=== PATIENT | female | born 1945 | race Caucasian/White ===

== ENCOUNTER 2018-07-07 08:13 | Inpatient (IN) | payer MEDICARE ==
[~2018-07-07] VITALS: Ht 175.3 cm; Wt 71.9 kg
[2018-07-07] VITALS (664 sets, daily range): BP systolic 107–141; BP diastolic 45–73; PULSE 85–106; TEMP 98.7–99.4; O2SAT 83–100
[2018-07-07] MEDS ORDERED: NEXIUM 20MG20 MG PO (08:22)
[2018-07-07 09:00] LABS: BASO # 0.1 (0.0-0.2); BASO % 0.4 % (0.0-2.0); EOS # 0.1 (0.0-0.7); EOS % 0.6 % (0-4.0); GRAN # 11.7 (1.4-6.5); GRAN % 80.2 % (42.2-75.2); LYMPH # 1.8 (1.2-3.4); LYMPH % 12.1 % (20.0-51.0); MEAN CELL VOLUME 94 fl (80.0-100.0); MEAN CORPUSCULAR HGB CONC 35 g/dl (33.0-37.0); MEAN PLATELET VOLUME 10.1 fl (7.4-10.4); MONO # 0.9 (0.1-0.6); MONO % 6.2 % (1.7-9.3); PLATELET COUNT 240 K/mm3 (130-400); RED BLOOD COUNT 2.23 M/mm3 (4.10-5.30); REDCELL DISTRIBUTION WIDTH-CV 13.1 % (11.5-14.5)
[2018-07-07 09:01] LABS: HEMOGLOBIN 7.3 g/dl (12.5-16.0); MEAN CORPUSCULAR HEMOGLOBIN 33 pg (27.0-31.0)
[2018-07-07 09:06] LABS: INR 1.2 (0.8-3.0); PROTHROMBIN TIME 13.6 SECONDS (9.7-12.8)
[2018-07-07] MEDS ORDERED: MERIBIN5 MG PO (09:08)
[2018-07-07 09:09] LABS: PARTIAL THROMBOPLASTIN TIME 28.5 SECONDS (26.0-37.0)
[2018-07-07] MEDS ORDERED: CALCIUM CARB W/1 TA1 PO (09:09)
[2018-07-07] MEDS ORDERED: NORCO 325 MG-7.1 TAB PO (09:10)
[2018-07-07] MEDS ORDERED: ZYRTEC 10MG10 MG PO (09:10)
[2018-07-07] MEDS ORDERED: CENTRUM1 TA1 PO (09:11)
[2018-07-07] MEDS ORDERED: METAMUCIL MUL0.52 GM PO (09:11)
[2018-07-07] MEDS ORDERED: TYLENOL 325MG325 MG PO (09:12)
[2018-07-07 09:20] LABS: ALANINE AMINOTRANSFERASE 40 U/L (9-52); ALBUMIN 3.1 gm/dL (3.5-5.0); ALKALINE PHOSPHATASE 77 U/L (50-136); ANION GAP 8 mmol/L (7-16); AST,SGOT 20 U/L (15-37); BILIRUBIN,TOTAL 0.2 mg/dL (0.0-1.0); BLOOD UREA NITROGEN 32 mg/dL (7-17); CALCIUM 8.3 mg/dL (8.4-10.2); CARBON DIOXIDE 25 mmol/L (22-30); CHLORIDE 99 mmol/L (98-107); CREATININE, serum 0.74 mg/dL (0.52-1.25); GLUCOSE 138 mg/dL (74-106); LIPASE 81 U/L (23-300); MAGNESIUM 1.7 mg/dL (1.6-2.3); POTASSIUM 3.9 mmol/L (3.4-5.0); SODIUM 132 mmol/L (137-145); TOTAL PROTEIN 5.6 gm/dL (6.4-8.2)
[2018-07-07 09:48] LABS: TROPONIN-I < 0.012 ng/mL (0.000-0.035)
[2018-07-07 09:48] LABS: COLLECTION METHOD CLEAN CATCH
[2018-07-07 09:54] LABS: MUCOUS Present /lpf; PH 5 (5-8); SQUAMOUS EPITHELIAL 0-2 /hpf; URINE APPEARANCE Clear; URINE BACTERIA None Seen /hpf; URINE BILIRUBIN Negative (NEGATIVE); URINE BLOOD Negative (NEGATIVE); URINE COLOR Yellow; URINE GLUCOSE Negative (NEGATIVE); URINE KETONE Negative (NEGATIVE); URINE LEUKOCYTE ESTERASE 1+ (NEGATIVE); URINE NITRATE Negative (NEGATIVE); URINE PROTEIN(semi-quant) Negative (NEGATIVE); URINE RBC 0-2 /hpf; URINE UROBILINOGEN Negative (NEGATIVE)
--- NOTE | 2018-07-07 10:45 | NUR ---
Patient arrives to ICU from emergency department. Patient is accompanied by CELSO Rubio, who called report to this nurse before arrival. Patient denies any chest pain or shortness of breath at this time. Able to scoot onto bed from stretcher. Patient is pale and appearance and her extremeties are a bit cool to the touch. Will monitor closely.
--- NOTE | 2018-07-07 12:00 | NUR ---
Contacted by primary care nurse for peripheral IV start. Nurse reports patient has a history of left breast removal and lymph nodes removal on left arm. Patient has now been admitted to the intensive care unit with an upper GI bleed. Patient reports history of recent right shoulder surgery including bicep repair. Right arm is in a sling. After discussion with the patient, we decided to start the IV in the left arm. 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 Reports understanding of increased chance of lymphedema. Previous IV was placed in left arm and removed without difficulty. Patient reported pain at site. Blood pressure cuff to left leg. RN informed of IV start.
--- NOTE | 2018-07-07 12:30 | NUR ---
Patient resting in bed at this time. Dr. Heard at bedside, discusses EGD for this afternoon.
[2018-07-07] MEDS ORDERED: MUCINEX 60600 MG/TA1 PO (15:13)
[2018-07-07] MEDS ORDERED: FLONASEALLERGY NS (15:14)
--- NOTE | 2018-07-07 15:57 | NUR ---
Patient leaves for EGD with transportation personnel.
--- NOTE | 2018-07-07 16:51 | NUR ---
Patient returns from EGD with nurse Dale. Patient states she is having some right shoulder pain at this time and feels a bit "pukey." Patient vitals stable at this time.
[2018-07-07 17:21] LABS: HEMATOCRIT 21.2 % (37.0-47.0); HEMOGLOBIN 7.2 g/dl (12.5-16.0)
--- NOTE | 2018-07-07 19:07 | NUR ---
Beside report given to CELSO Palencia.
--- NOTE | 2018-07-07 19:08 | NUR ---
RECEIVED REPORT FROM CELSO VIVAS AT BEDSIDE.
[2018-07-08] VITALS (816 sets, daily range): BP systolic 101–154; BP diastolic 40–66; PULSE 72–87; TEMP 98.2–98.7; O2SAT 90–100
--- NOTE | 2018-07-08 00:40 | NUR ---
[facility] HG 0F 6.7 CALLED BY LAB. THIS RN THEN NOTIFIED HOSPITALIST ISAIAH SANON. ORDERS RECEIVED TO DECREASE NS AT 100 ML/HR AND TRANSFUSE 1 PRBC. BLOOD BANK NOTIFIED AND WILL TYPE AND CROSS MATCH BLOOD. CONSENT SIGNED AND IN CHART.
[2018-07-08 00:41] LABS: HEMATOCRIT 19.8 % (37.0-47.0); HEMOGLOBIN 6.7 g/dl (12.5-16.0)
[2018-07-08 06:00] LABS: BASO # 0.1 (0.0-0.2); BASO % 0.7 % (0.0-2.0); EOS # 0.3 (0.0-0.7); EOS % 4.4 % (0-4.0); GRAN # 4.3 (1.4-6.5); GRAN % 60.9 % (42.2-75.2); LYMPH # 1.8 (1.2-3.4); LYMPH % 25.1 % (20.0-51.0); MEAN CELL VOLUME 94 fl (80.0-100.0); MEAN CORPUSCULAR HGB CONC 34 g/dl (33.0-37.0); MONO # 0.6 (0.1-0.6); MONO % 8.3 % (1.7-9.3); PLATELET COUNT 171 K/mm3 (130-400); RED BLOOD COUNT 2.52 M/mm3 (4.10-5.30); REDCELL DISTRIBUTION WIDTH-CV 15.2 % (11.5-14.5)
[2018-07-08 06:01] LABS: HEMATOCRIT 23.6 % (37.0-47.0); HEMOGLOBIN 8.1 g/dl (12.5-16.0); MEAN CORPUSCULAR HEMOGLOBIN 32 pg (27.0-31.0)
[2018-07-08 06:10] LABS: CALCIUM 7.9 mg/dL (8.4-10.2); CREATININE, serum 0.71 mg/dL (0.52-1.25); POTASSIUM 3.6 mmol/L (3.4-5.0)
--- NOTE | 2018-07-08 07:04 | NUR ---
Report received from CELSO Palencia.
--- NOTE | 2018-07-08 07:20 | NUR ---
report given to CELSO Bustillos.
--- NOTE | 2018-07-08 07:45 | NUR ---
Assessment complete, patient assisted to bathroom, AM care complete, patient reports "pulsating pain to back of neck, has been there since last Wednesday." Tylenol given per request. Assisted back to bed, call light within reach.
--- NOTE | 2018-07-08 10:28 | NUR ---
SW met with patient after clinical rounds. Patient lives independently at home in [place] and is still employed. Patient is staying with her brother here in [place] while she recovers from her surgery and this hospital stay. Patient reports her PCP is Dr Yoni Vaca in [place] and she obtain prescriptions from [facility]. Patient does not use any home health services or DME. Patient reports her brother will be visiting today and will bring a copy of her DPOA forms. reports patient should be able to discharge tomorrow. CINDI does not anticipate any needs upon discharge.
--- NOTE | 2018-07-08 13:07 | NUR ---
Report called to CELSO Mederos.
--- NOTE | 2018-07-08 14:50 | NUR ---
Patient transferred to [facility] via wheelchair, brother at bedside,all belongings with patient. CELSO Mederos met us in room.
--- NOTE | 2018-07-08 14:55 | NUR ---
Patient arrived to the floor at this time from ICU via wheelchair, she is alert/oriented, vital signs stable, denies pain at this time, just feeling "wore out", denies any more dark/ bloody stools, I have helped her to the bathroom and back to bed, will recheck her H&H at 1500 as ordered, has a visitor in the room, denies needs at this time
--- NOTE | 2018-07-08 14:57 | NUR ---
placed in contact P/C for MRSA + in nares, educated the patient on this
[2018-07-08 15:41] LABS: HEMATOCRIT 25.5 % (37.0-47.0); HEMOGLOBIN 8.5 g/dl (12.5-16.0)
--- NOTE | 2018-07-08 20:00 | NUR ---
Patient resting in bed watching television at this time. Patient is alert and oriented, answers questions appropriately. Sling in place to right arm, patient has recently had rotator cuff surgery. Patient currently denies pain, but state that she has an "odd" sensation in her neck/base of her skull and she is able to hear/feel her pulse constantly. Patient states she has reported it to several providers and no one has been able to determine the cause. Patient tried a flexeril earlier with no relief, currently has an ice pack and denies relief with that as well. Patient states this makes it difficult for her to sleep. Denies further needs at this time, call light within reach.
--- NOTE | 2018-07-08 23:26 | NUR ---
PER PROTOCOL PT 02 CHECK WAS COMPLETED OUT.
[2018-07-09] VITALS (7 sets, daily range): BP systolic 91–113; BP diastolic 37–50; PULSE 76–787; TEMP 97.9–98.1
--- NOTE | 2018-07-09 01:00 | NUR ---
BR[employer] SALES CONSULTANT reported that patient's pulse was high. Upon investigation, patient was tachycardic, rate fluctuating from 130's to 110's. Upon auscultation, apical was fast and irregular. Called hospitalist to report findings, initiated telemetry, EKG, and lab work per orders.
[2018-07-09 01:20] LABS: BASO # 0.1 (0.0-0.2); BASO % 0.8 % (0.0-2.0); EOS # 0.4 (0.0-0.7); EOS % 5.3 % (0-4.0); GRAN # 4.7 (1.4-6.5); GRAN % 60.6 % (42.2-75.2); LYMPH # 1.9 (1.2-3.4); LYMPH % 24.2 % (20.0-51.0); MEAN CELL VOLUME 95 fl (80.0-100.0); MEAN CORPUSCULAR HGB CONC 34 g/dl (33.0-37.0); MEAN PLATELET VOLUME 9.6 fl (7.4-10.4); MONO # 0.7 (0.1-0.6); MONO % 8.6 % (1.7-9.3); PLATELET COUNT 199 K/mm3 (130-400); RED BLOOD COUNT 2.82 M/mm3 (4.10-5.30); REDCELL DISTRIBUTION WIDTH-CV 16.3 % (11.5-14.5)
[2018-07-09 01:23] LABS: HEMATOCRIT 26.8 % (37.0-47.0); MEAN CORPUSCULAR HEMOGLOBIN 32 pg (27.0-31.0)
[2018-07-09 01:41] LABS: CALCIUM 8.3 mg/dL (8.4-10.2); CREATININE, serum 0.66 mg/dL (0.52-1.25); MAGNESIUM 1.9 mg/dL (1.6-2.3); POTASSIUM 3.4 mmol/L (3.4-5.0)
[2018-07-09 02:17] LABS: TSH w REFLEX 1.86 uIU/mL (0.465-4.680)
[2018-07-09] MEDS ORDERED: PROTONIX 40MG T40 MG PO (10:44)
[2018-07-09] MEDS ORDERED: FERRO-TIME325 MG PO (10:44)
--- NOTE | 2018-07-09 15:02 | NUR ---
Patient consult dc-plan due to feeling weak. Patient indicated that she wanted information on SNF or other Rehabs. Reviewed PT/OT notes, recommendation for outpatient rehab PT in [facility]. Provide patient with home health options for her local area. Gave Printed version.
--- NOTE | 2018-07-09 18:00 | NUR ---
Complained of weakness and dizziness when up. Ambulatory in room with standby assist. Concerned about low blood pressure. IV fluid bolus given. Warm moist pack to back of neck for c/o neck pain. CT scan done. Complained of not sleeping well in hospital. Right arm in sling from recent surgery.
--- NOTE | 2018-07-09 23:18 | NUR ---
PT WORRIED ABOUT HER BLOOD PRESSURE, 113/37. PT ASYMPTOMATIC, PULSE WAS 84. CHANNEL BUSINESS MANAGER NOTIFIED. NO NEW ORDERS.
[2018-07-10 04:08] VITALS: BP 106/56; PULSE 73; TEMP 98.1
--- NOTE | 2018-07-10 05:41 | NUR ---
PT IN BED. NO N/V. DIASTOLIC BLOOD PRESSURES IMPROVED FROM BEGINNING OF SHIFT.
[2018-07-10 05:49] LABS: BASO # 0.1 (0.0-0.2); EOS # 0.4 (0.0-0.7); EOS % 6.7 % (0-4.0); GRAN % 57.9 % (42.2-75.2); LYMPH # 1.4 (1.2-3.4); LYMPH % 26.2 % (20.0-51.0); MEAN CELL VOLUME 97 fl (80.0-100.0); MEAN CORPUSCULAR HGB CONC 33 g/dl (33.0-37.0); MEAN PLATELET VOLUME 9.6 fl (7.4-10.4); MONO # 0.4 (0.1-0.6); PLATELET COUNT 220 K/mm3 (130-400); RED BLOOD COUNT 2.63 M/mm3 (4.10-5.30)
[2018-07-10 05:51] LABS: HEMATOCRIT 25.5 % (37.0-47.0); HEMOGLOBIN 8.3 g/dl (12.5-16.0); MEAN CORPUSCULAR HEMOGLOBIN 32 pg (27.0-31.0)
[2018-07-10 06:03] LABS: CALCIUM 8.5 mg/dL (8.4-10.2); CREATININE, serum 0.75 mg/dL (0.52-1.25); POTASSIUM 3.7 mmol/L (3.4-5.0)
[2018-07-10 07:08] VITALS: BP 110/54; PULSE 76; TEMP 97.3
--- NOTE | 2018-07-10 09:02 | NUR ---
Pt on isolation precautions. Denies numbness or tingling, dizziness. Declined assistance with shower at this time. Sling to SARA, pt states she has not done her shoulder exercises. Contact isolation precautions in place. Pt states she has concerns about taking care of herself alone at home. Pt also states the pulsating in her neck is somewhat better today. Pt repeats her concern of not wanting to start bleeding again. Independent in room to BR, eating breakfast, on potassium protocol. A&O, anxious.
[2018-07-10 11:12] VITALS: BP 110/50; PULSE 76; TEMP 97.5
[2018-07-10 12:00] VITALS: PULSE 77
--- NOTE | 2018-07-10 15:34 | NUR ---
Patient's brother arrived, reviewed discharge instructions. Confirmed [facility] has two e-scripts ready.
== END 2018-07-10 15:30 | disposition home or self-care (01) | DRG 378 ==
LOC: COL.ER 08:13 → ICU 09:27 → SURG 07-08 14:51
PROVIDERS: Emergency Medicine; Internal Medicine Gastroenterology; Nurse Practitioner Family; ADMIT Hospitalist
PROC: 0DB68ZX Excision of Stomach, Via Natural or Artificial Opening Endoscopic, Diagnostic (ICD-10-PCS; principal; 2018-07-07 15:00)
DX: K26.4 Chronic or unspecified duodenal ulcer with hemorrhage (principal); E87.1 Hypo-osmolality and hyponatremia; D62 Acute posthemorrhagic anemia; K29.71 Gastritis, unspecified, with bleeding; K44.9 Diaphragmatic hernia without obstruction or gangrene; Z87.891 Personal history of nicotine dependence; Z85.3 Personal history of malignant neoplasm of breast; I48.91 Unspecified atrial fibrillation; E87.6 Hypokalemia
CPT/HCPCS: 99222-AI; 99232-AI; 99239; C9113; J2405; J2704; J3010; J7030; J7040; P9016; Q9967